=== PATIENT | female | born 1930 | race Caucasian/White ===

== ENCOUNTER 2016-10-29 08:55 | Emergency (ER) | payer MEDICARE, OTHER ==
[~2016-10-29 08:55] MED LIST: AVAPRO150 MG PO; CHILDRENS CHEWA81 MG PO; COLACE100 MG PO; COREG3.125 MG PO; HYDROCHLOROTH12.5 MG PO; LIPITOR10 MG PO; NITROGLYCERIN0.4 MG SL; REQUIP2 MG PO; SYNTHROID100 MCG PO; VITAMIN D2000 UNI1 PO; XARELTO20 MG PO; ZYRTEC10 MG PO
[2016-10-29 09:36] LABS: BASO % 0.6 % (0.1-1.2); EOS # 0.1 10_X3_uL (0.0-0.4); GRAN # 2.3 10_X3_uL (1.6-6.1); GRAN % 45.6 % (34.0-71.1); HEMATOCRIT 45.2 % (34-45); HEMOGLOBIN 15.1 g/dL (11.2-15.7); LYMPH # 2.1 10_X3_uL (1.2-3.7); LYMPH % 41.7 % (19.3-51.7); MEAN CORPUSCULAR HEMOGLOBIN 29.4 pg (27.0-33.0); MEAN CORPUSCULAR HGB CONC 33.4 g/dL (32.0-36.0); MEAN CORPUSCULAR VOLUME 87.9 fL (79-95); MEAN PLATELET VOLUME 11.5 fl (7.5-11.5); MONO # 0.6 10_X3_uL (0.2-0.9); MONO % 11.1 % (4.7-12.5); PLATELET COUNT 194 x10_3/uL (182-369); RED BLOOD COUNT 5.14 x10_6/uL (3.9-5.2); RED CELL DISTRIBUTION WIDTH 14.5 % (11.7-14.4)
[2016-10-29 09:43] LABS: BLOOD UREA NITROGEN 18 mg/dL (7-18); CALCIUM 9.3 mg/dL (8.7-10.7); CARBON DIOXIDE 23 mmol/L (21-32); CREATININE 0.9 mg/dL (0.6-1.3); GLUCOSE,RANDOM 115 mg/dL (70-99); POTASSIUM 4.2 mmol/L (3.5-5.1); SODIUM 137 mmol/L (136-145)
[2016-10-29 09:55] LABS: TROP-I < 0.30 NG/ML (0.00-0.30)
== END 2016-10-29 10:17 | disposition home or self-care (01) ==
LOC: ER 08:55
PROVIDERS: General Practice
DX: R00.2 Palpitations (principal); I73.9 Peripheral vascular disease, unspecified; I87.8 Other specified disorders of veins; I10 Essential (primary) hypertension; Z85.038 Personal history of other malignant neoplasm of large intestine; E66.01 Morbid (severe) obesity due to excess calories; I48.91 Unspecified atrial fibrillation; E07.9 Disorder of thyroid, unspecified; Z88.2 Allergy status to sulfonamides; Z88.1 Allergy status to other antibiotic agents; Z79.899 Other long term (current) drug therapy
CPT/HCPCS: 36415; 71010; 80048; 84443; 85025; 93005; 99070; 99284; 99285-25